=== PATIENT | male | born 1945 | race African-American/Black ===

== ENCOUNTER 2016-09-27 12:04 | Emergency (ER) | payer OTHER ==
[~2016-09-27] VITALS: Ht 172.7 cm; Wt 143.4 kg
[2016-09-27] MEDS ORDERED: SIMVASTATIN20 MG PO (12:14)
[2016-09-27] MEDS ORDERED: LISINOPRIL-HCT1 EAC3 PO (12:14)
[2016-09-27] MEDS ORDERED: GLUCOPHAGE500 MG PO (12:15)
[2016-09-27] MEDS ORDERED: CALAN120 MG PO (12:15)
[2016-09-27] MEDS ORDERED: LO-DOSE ASPIRIN81 M2 PO (12:15)
[2016-09-27 13:20] LABS: EOSINOPHIL (%) 0.1 % (0-5); HEMATOCRIT 39.3 % (38.0-50.0); IMMATURE GRANULOCYTE (%) 0.3 % (0.0-0.7); IMMATURE GRANULOCYTE COUNT 0.3 K/uL; LYMPHOCYTE COUNT 1.5 K/uL (1.0-2.8); MCH 27.4 PG (29.0-34.0); MCHC 33.6 G/DL (30.0-36.0); MCV 81.7 FL (86-99); MEAN PLAT.VOLUME 10.1 uM^3 (9.0-12.4); MONOCYTE (%) 11.9 % (3-12); MONOCYTE COUNT 1.1 K/uL (0-0.8); NEUTROPHIL (%) 71.4 % (45-76); NEUTROPHIL COUNT 6.7 K/uL (1.8-6.4); PLATELET COUNT 316 K/uL (156-360); RBC DIS.WIDTH-SD 37.8 % (39-53); RED BLOOD COUNT 4.81 M/uL (4.00-5.50); WHITE BLOOD COUNT 9.3 K/uL (4.1-10.2)
[2016-09-27 13:29] LABS: CHLORIDE 101 mEq/L (99-109); POTASSIUM 3.4 mEq/L (3.7-5.4); SODIUM 138 mEq/L (136-147)
[2016-09-27 13:31] LABS: GLUCOSE 105 mg/dL (70-99)
[2016-09-27 13:33] LABS: ANION GAP 10 MEQ/L (2-14)
[2016-09-27 13:35] LABS: ALKALINE PHOSPHATASE 57 IU/L (3-129); GFR ESTIMATE (CALCULATED) > 59 mL/min/
[2016-09-27 13:36] LABS: UREA NITROGEN (BUN) 20 mg/dL (9-23)
[2016-09-27 14:14] LABS: C-REACTIVE PROTEIN 170.5 MG/L (0-10)
[2016-09-27 14:42] LABS: ERTH.SED.RATE 116 MM/HR (0-20)
[2016-09-27 16:17] LABS: APPEARANCE YELLOW/TURBID
[2016-09-27 16:18] LABS: WBC AREA COUNTED 8; WBC DILUTION 50; WHITE CELL COUNT 21500 /MM^3 (0-200.0); WHITE CELL RAW COUNT 344
[2016-09-27 16:24] LABS: MONO RAW COUNT 4; MONONUCLEAR WBC'S 4 %; POLY RAW COUNT 96; POLYNUCLEAR WBC'S 96 % (0-25); SYNOVIAL FLUID EOSINOPHILS 0 % (0-25)
[2016-09-27 16:27] LABS: RED CELL COUNT 3000 /MM^3 (0-1)
[2016-09-27] MEDS ORDERED: NAPROXEN500 MG PO (17:07)
[2016-09-27] MEDS ORDERED: MOBIC7.5 MG PO (17:08)
[2016-09-27 17:43] VITALS: BP 148/98
== END 2016-09-27 17:45 ==
LOC: EME 12:04
PROVIDERS: Physician Assistant
PROC: 0S9D3ZZ Drainage of Left Knee Joint, Percutaneous Approach (ICD-10-PCS; principal; 2016-09-27)
DX: M25.462 Effusion, left knee (principal); M17.12 Unilateral primary osteoarthritis, left knee; E11.9 Type 2 diabetes mellitus without complications; E78.5 Hyperlipidemia, unspecified; I10 Essential (primary) hypertension
CPT/HCPCS: 73564; 80053; 85025; 85651; 86140; 87205; 89051; 99281; 99284